=== PATIENT | male | born 1955 | race Caucasian/White ===

== ENCOUNTER 2016-08-07 13:19 | Emergency (ER) | payer BC, OTHER ==
[~2016-08-07] VITALS: Ht 180.3 cm; Wt 84.9 kg
[2016-08-07 13:25] VITALS: BP 157/86
== END 2016-08-07 15:02 | disposition home or self-care (01) ==
LOC: ED 14:56
DX: S49.91XA Unspecified injury of right shoulder and upper arm, initial encounter (principal); K21.9 Gastro-esophageal reflux disease without esophagitis; X58.XXXA Exposure to other specified factors, initial encounter; Y93.89 Activity, other specified; Y99.8 Other external cause status; Y92.89 Other specified places as the place of occurrence of the external cause
CPT/HCPCS: 99284